=== PATIENT | female | born 1950 | race Caucasian/White ===

== ENCOUNTER 2018-09-26 08:02 | Day surgery (SDC) | payer MEDICARE ==
[~2018-09-26] VITALS: Ht 157.5 cm; Wt 99.8 kg
[2018-09-26] MEDS ORDERED: NICARDIPINE 100MCG/ML 10ML VIAL (CATH LAB) IV ONE (08:22)
[2018-09-26] MEDS ORDERED: HEPARIN SODIUM 1,000 UNIT/1ML VIAL IV ONE (08:22)
[2018-09-26] MEDS ORDERED: NITROGLYCERIN 50MCG/ML 10ML VIAL (CATH LAB) IV ONE (08:22)
[2018-09-26] MEDS ORDERED: IODIXANOL 320MG/ML 100 ML BOTTLE IV ONE ×2 (08:41→09:38)
[2018-09-26] MEDS ORDERED: LIDOCAINE HCL 1% 20ML VIAL (Pyxis) INJ ONE (08:41)
[2018-09-26] MEDS ORDERED: LISI-604 MT (09:11)
[2018-09-26] MEDS ORDERED: CAPT50TA3 MT (09:11)
[2018-09-26] MEDS ORDERED: RANI300C8 PO (09:11)
[2018-09-26] MEDS ORDERED: NAPR-681 PO (09:11)
[2018-09-26] MEDS ORDERED: HYDR25TA MT (09:11)
[2018-09-26] MEDS ORDERED: METO-539 MT (09:11)
[2018-09-26] MEDS ORDERED: OXYB5TAB MT (09:11)
[2018-09-26] MEDS ORDERED: MIDAZOLAM HCL 2 MG/2 ML VIAL ONE (09:16)
[2018-09-26] MEDS ORDERED: FENTANYL CITRATE/PF 50MCG/ML 2ML VIAL ONE (09:16)
[2018-09-26] MEDS ORDERED: ATOR10TA MT (09:20)
[2018-09-26] MEDS ORDERED: ATROPINE SULFATE 1MG/10ML SYR IV PRN (10:00)
[2018-09-26] MEDS ORDERED: ONDANSETRON HCL 4MG/2ML INJ IV PRN (10:00)
[2018-09-26] MEDS ORDERED: ACETAMINOPHEN 325MG TABLET PO PRN (10:00)
== END 2018-09-26 13:40 | disposition home or self-care (01) ==
LOC: CCL 08:02
PROVIDERS: ATTEND Specialist
DX: R07.89 Other chest pain (principal); R94.39 Abnormal result of other cardiovascular function study; I25.10 Atherosclerotic heart disease of native coronary artery without angina pectoris; I11.9 Hypertensive heart disease without heart failure; E78.5 Hyperlipidemia, unspecified; Z88.6 Allergy status to analgesic agent; Z79.899 Other long term (current) drug therapy
CPT/HCPCS: 93458; 99152; 99153; C1769; C1887; C1893; J1644; J2250; J3010; J3490; Q9967; G0500